=== PATIENT | male | born 1980 | race Caucasian/White ===

== ENCOUNTER 2020-04-29 11:49 | Emergency (ER) | payer SELFPAY ==
[2020-04-29 12:08] VITALS: BP 142/78; PULSE 72; RESP 18; TEMP 37.3; O2SAT 98; BMI 22.1
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
[2020-04-29] MEDS: cephALEXin 500 mg Capsule PO (12:23)
[2020-04-29] MEDS: tetanus-dipt-pertussis 0.5 mL SDV IM (12:23)
== END 2020-04-29 13:19 | disposition home or self-care (01) ==
LOC: ER 13:05
PROVIDERS: Emergency Provider Physician Assistant
DX: S61.411A Laceration without foreign body of right hand, initial encounter (principal); W26.9XXA Contact with unspecified sharp object(s), initial encounter; F17.210 Nicotine dependence, cigarettes, uncomplicated; Z23 Encounter for immunization
CPT/HCPCS: 12002; 12345; 90471; 90715; 99282; 99283; J2001

== ENCOUNTER 2020-05-09 08:23 | Emergency (ER) | payer SELFPAY ==
[2020-05-09 08:26] VITALS: BP 132/86; PULSE 101; RESP 18; TEMP 37; O2SAT 97; BMI 21.9
--- NOTE | 2020-05-09 08:29 | ED_ITS ---
HPI - Wound/Laceration General: Chief Complaint: Recheck/Abnormal Lab/Rx Stated Complaint: RIGHT HAND LAC Time Seen by Provider: 05/09/20 08:26 History of Present Illness: HPI narrative: Patient is a 39-year-old male comes to the ED with right hand laceration. Patient was seen here in the ED for same laceration on 04/29. Sutures were placed to close wound 04/29 and he was instructed to have a medical provider evaluate and remove sutures in 7 to 10 days. Patient says yesterday he removed the sutures himself and laceration had not healed up enough. Patient states he thinks he remove the sutures too early. Associated symptoms: Denies chills, fever(s), nausea or vomiting Review of Systems Const: Denies: fever(s), chills or fatigue Eyes: Denies: change in vision or eye discomfort ENMT: Denies: throat pain, odynophagia, nasal discharge or nasal congestion Card: Denies: chest pain, palpitations, edema, swelling of feet/ankles, d yspnea on exertion or orthopnea Resp: Denies: dyspnea, productive cough or non-productive cough GI: Denies: abdominal pain, nausea, vomiting, diarrhea, constipation or hematochezia : Denies: flank pain, difficulty urinating, dysuria or hematuria Musc: Denies: neck pain, back pain or extremity swelling Skin/Breast: Reports: new lesions (Same laceration on right hand from last ED visit. Patient remove sutures himself too early.); Denies: rash Neuro: Denies: headache(s), numbness in extremities or weakness in extremities [facility] ED PFSH: Social History Smoking and tobacco status: current every day smoker Alcohol intake: former Physical Exam Const: COMMON NORMALS: no acute distress, patient oriented x3, healthy a ppearing and alert GENERAL APPEARANCE: cooperative and comfortable HENMT: COMMON NORMALS: normocephalic HEAD & SCALP: normocephalic MOUTH: Normal oral and palatal mucosa present THROAT: posterior oropharynx normal and uvula midline Neck/C-Spine: COMMON NORMALS: supple GENERAL: Yes normal visual inspection Resp: COMMON NORMALS: normal respiratory effort, No retractions, No use of accessory muscles and clear to auscultation bilaterally AUSCULTATION: clear to auscultation bilaterally Cardio: COMMON NORMALS: regular rate, regular rhythm, S1 normal heart sound present, S2 normal heart sound present, No gallops present (Cardio), No clicks present (Cardio), No murmurs present (Cardio) and Peripheral pulses 2+ throughout RATE: regular rate RHYTHM: regular rhythm HEART SOUNDS: S1 normal heart sound present and S2 normal heart sound present PERIPHERAL PULSES: Peripheral pulses 2+ throughout GI: COMMON NORMALS: Normal to inspection, nondistended, normoactive bowel sounds present, Soft to palpation, non-tender and no masses PALPATION: Yes Soft to palpation : COMMON NORMALS: Yes no CVA tenderness BLADDER/KIDNEY EXAM: Yes no CVA tenderness Back/Pelvis: COMMON NORMALS: no CVA tenderness Extremity: COMMON NORMALS: no pedal edema GENERAL: Yes normal exam except as noted RIGHT UPPER EXTREMITY: Yes hand & digits (No signs of erythema, warmth or purulent drainage around laceration.) Right hand and digits: Yes inspection (Laceration on dorsal aspect of right hand has not fully closed due to sutures being removed too early.), Yes ROM exam (full), Yes neurovascular exam (intact) and Yes tendon exam (Full ROM) Neuro: COMMON NORMALS: patient oriented x3 and moves all extremities SENSORIUM/ORIENTATION: Yes alert Skin: NARRATIVE SKIN EXAM: Laceration on right hand has not fully closed due to sutures being removed too early. GENERAL SKIN EXAM: dry skin Procedures Laceration Laceration 1: Site: hand (dorsal aspect) Side (If applicable): right Size (cm): 2.5 Description: linear Depth: simple, single layer Local Anesthetic: lidocaine 1% and with epi Amount of anesthesia used (mL): 10 Pre-repair: irrigated extensively (With normal saline.) Skin layer closed with: nylon Size (cm): 4-0 Number of sutures: 4 Technique: simple, interrupted Course Vital Signs: Vital signs: Vital Signs Temperature 98.6 F 05/09/20 08:26 Pulse Rate 85 05/09/20 09:52 Respiratory Rate 18 05/09/20 09:52 Blood Pressure 115/72 05/09/20 09:52 Pulse Oximetry 97 05/09/20 09:52 MDM - Wound/Laceration MDM Narrative: Medical decision making narrative: Patient is a 39-year-old male who comes to the ED for laceration/wound recheck. Patient was seen here for a laceration approximately 10 days ago, sutures placed and discharged on antibiotic. Patient says that he did not take the antibiotic because he did not have the money to get the prescription filled and he removed the sutures himself and did not get wound evaluated by a provider. Patient remove the sutures, but part of the wound was not fully healed yet. He then bumped his right hand on a hard surface and it reopened part of laceration. Here in the ED patient's laceration was irrigated and cleaned. Lidocaine with epi was used as a local one 4 sutures were placed. Patient was also given a dose of IM Rocephin and discharged. He was told to come back to the ED or urgent care for reevaluation of wound healing and suture removal in approximately 10 days. He was told to keep wound covered and cleaned daily. Patient understood and agreed with plan. Discharge Plan Discharge Patient Disposition: Home, Self-Care Clinical Impression: Encounter for wound re-check Condition: Stable Prescriptions: No Action No Known Home Medications RF: 0 Discharge Orders: Discharge Order (Routine); Ordered 05/09/20 Ordered By: José Alvarez Discharge Diet: Regular Discharge Activity: Resume usual activity Patient Instructions: Laceration (ED) Activity Restrictions/Additional Instructions: Keep laceration site clean and dry for the next 48 hours. Then after that you can clean and re-bandage daily. Watch for signs of infection such as redness, warmth, increased tenderness and puslike drainage. If you see the signs of infection return to the ED, urgent care or PCP for reevaluation. call your PCP to schedule a follow-up appointment for reevaluation in the next 10 days and to get sutures removed. Continue taking all home meds. Follow discharge plans as discussed. You can return to the ED if symptoms worsen. 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
[2020-05-09 08:45] VITALS: BP 132/86; PULSE 101; RESP 18; O2SAT 96
[2020-05-09 09:52] VITALS: BP 115/72; PULSE 85; RESP 18; O2SAT 97
== END 2020-05-09 09:55 | disposition home or self-care (01) ==
PROVIDERS: Emergency Provider Physician Assistant
DX: Z48.00 Encounter for change or removal of nonsurgical wound dressing (principal); S61.411A Laceration without foreign body of right hand, initial encounter; X58.XXXA Exposure to other specified factors, initial encounter; F17.210 Nicotine dependence, cigarettes, uncomplicated
CPT/HCPCS: 12001; 12345; 96372; 96374; 96375; 99281; 99283; J0696

== ENCOUNTER 2021-03-06 08:18 | Emergency (ER) | payer SELFPAY ==
[2021-03-06 08:30] VITALS: BP 134/88; PULSE 98; RESP 16; TEMP 36.7; O2SAT 98; BMI 22.5
--- NOTE | 2021-03-06 08:30 | W.ED.UPPEXIN ---
HPI - Extremity Injury (Upper) General: Chief Complaint: Back Pain/Injury Stated Complaint: Pain In R. Shoulder/Numbness in R. Hand Time Seen by Provider: 03/06/21 08:30 History of Present Illness: HPI narrative: Patient comes in today for complaints of right shoulder discomfort. Patient also reports some numbness into his right hand. Patient denies any falls or injury. Patient denies any fever or nausea or vomiting. Patient works at a [employer] in which he utilizes his body most of the time. Patient appears well. Patient appears in mild to no pain. Onset (ago): day(s) Other Extremity Injury: Right: shoulder Other injuries: none Handedness: right Severity: mild Relieving factors: rest Exacerbating factors: none Context: other (Probable repetitive injury) Associated symptoms: Reports numbness Treatments prior to arrival: other ([id number] analgesics) Review of Systems General: Reports: 10 or more systems reviewed and unremarkable except in HPI and below Musc: Reports: joint pain PFSH ED PFSH: Social History Smoking and tobacco status: current every day smoker Alcohol intake: former Current gender identity: Male Physical Exam Const: COMMON NORMALS: no acute distress and patient oriented x3 GENERAL APPEARANCE: cooperative HENMT: COMMON NORMALS: normocephalic and Normal external nose present HEAD & SCALP: normal to inspection and normocephalic NOSE: Normal external nose present Eye: GENERAL EYE: appearance normal, both eyes and all related structures Neck/C-Spine: COMMON NORMALS: full ROM Chest: COMMONS NORMALS: normal inspection of the chest Resp: COMMON NORMALS: normal respiratory effort EFFORT & INSPECTION: Yes able to speak in complete sentences Cardio: COMMON NORMALS: regular rate and regular rhythm RATE: regular rate RHYTHM: regular rhythm GI: COMMON NORMALS: non-tender Back/Pelvis: OTHER: Tenderness along palpation of upper thoracic spine on the right side. Extremity: OTHER: Normal range of motion of the shoulder without any joint line tenderness, redness or swelling. Neuro: COMMON NORMALS: patient oriented x3 and moves all extremities Psych: COMMON NORMALS: mental status grossly normal and cooperative Skin: COMMON NORMALS: no rashes or lesions noted GENERAL SKIN EXAM: no rashes or lesions noted Course Vital Signs: Vital signs: Vital Signs Temperature 98.0 F 03/06/21 08:30 Pulse Rate 98 05/10/21 08:30 Respiratory Rate 16 03/06/21 08:30 Blood Pressure 134/88 03/06/21 08:30 Pulse Oximetry 98 03/06/21 08:30 MDM - Extremity Injury (Upper) MDM Narrative: Medical decision making narrative: Patient presents today with complaints of right posterior shoulder pain with some numbness into his right hand. On exam patient has good strength and range of motion of the shoulder. It is noted that patient has muscle tenderness to the upper thoracic paraspinous muscles. No signs of injury is noted. No dislocation is noted. Distal pulses and sensation appears intact. Differential diagnosis includes but not limited to muscle strain, nerve impingement syndrome, facet arthropathy, intervertebral disc disease. Recommended patient do a trial of dexamethasone 10 mg IM x1 and then continue with muscle relaxer. Recommended [id number] analgesics for pain. Continue with activity as tolerated. Patient reported understanding and agreed to plan with need for follow-up. Discharge Plan Discharge Patient Disposition: Home Clinical Impression: Thoracic back pain Qualifiers: Chronicity: unspecified Back pain laterality: right Qualified Code(s): M54.6 - Pain in thoracic spine Condition: Stable Prescriptions: New tizanidine 4 mg tablet 4 mg PO Q8H PRN (Reason: muscle spasticity) Qty: 14 RF: 0 Discharge Orders: Discharge ED (Routine); Ordered 03/06/21 Ordered By: Tito Caicedo Discharge Diet: Usual diet Discharge Activity: Increase activity as tolerated Patient Instructions: Thoracic Pain (ED), Opioid Safety Activity Restrictions/Additional Instructions: Activity as tolerated. Gentle stretching and range of motion exercises. Use muscle relaxer as needed for muscle spasm. Use acetaminophen or ibuprofen for pain. Follow-up with primary care in 3 days for recheck. If pain persists or worsens you may need to have further evaluation and this is important for the follow-up appointment. Most likely have a nerve entrapment which is causing the numbness going down the arm. Sometimes this can be relieved with the dose of steroid by reducing the inflammation along that nerve tract pathway. Return to the emergency department for new concerns. 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
[2021-03-06] MEDS: dexamethasone 10 mg/mL INJ IM (09:08)
== END 2021-03-06 09:12 | disposition home or self-care (01) ==
PROVIDERS: Emergency Provider Nurse Practitioner Family
DX: M54.6 Pain in thoracic spine (principal); F17.210 Nicotine dependence, cigarettes, uncomplicated
CPT/HCPCS: 96372; 99283; J1100

== ENCOUNTER 2022-06-17 16:05 | Emergency (ER) | payer SELFPAY ==
--- NOTE | 2022-06-17 16:15 | XRR_ITS ---
PROCEDURE INFORMATION: Exam: XR Right Shoulder Exam date and time: 06/17/2022 4:22 PM Age: 42 years old Clinical indication: Pain; Shoulder; Right; Additional info: R shoulder pain TECHNIQUE: Imaging protocol: Radiologic exam of the Right shoulder. Views: 2 or more views. COMPARISON: CR Chest 1 [place] [id number] 12/30/2016 10:01 PM FINDINGS: Bones/joints: Normal. Soft tissues: Normal. XR/XR shoulder RT min 2V* [id number] IMPRESSION: No acute findings.
[2022-06-17 16:43] VITALS: BP 108/71; PULSE 90; RESP 16; TEMP 36.8; O2SAT 99; BMI 23.7
--- NOTE | 2022-06-17 17:28 | ED_ITS ---
HPI - Extremity Problem General: Chief complaint: Extremity Injury, Upper Stated complaint: right shoulder pain Time Seen by Provider: 06/17/22 17:02 History of Present Illness: Patient is a 42-year-old male comes to the ED with right shoulder pain. Pain started little over 2 weeks ago. He states that he works in a [employer] and is currently doing a lot of lifting and physical labor. He denies any known trauma or injury to cause shoulder pain. He thinks the physical [id number] of his job likely caused his symptoms. Pain is a constant aching type pain just below his right shoulder blade. He has full range of motion in right shoulder but does endorse some aching type pain with movement. Associated symptoms: Deny chest pain, fever(s) or rash Review of Systems Const: Denies: fever(s), chills or fatigue Eyes: Denies: change in vision or eye discomfort ENMT: Denies: throat pain, odynophagia, nasal discharge or nasal congestion Card: Denies: chest pain, palpitations, edema, swelling of feet/ankles, dyspnea on exertion or orthopnea Resp: Denies: dyspnea, productive cough or non-productive cough GI: Denies: abdominal pain, nausea, vomiting, diarrhea, constipation or hematochezia : Denies: flank pain, difficulty urinating, dysuria or hematuria Musc: Reports: extremity pain (Right shoulder pain); Denies: neck pain, back pain or extremity swelling Skin/Breast: Denies: rash or new lesions Neuro: Denies: headache(s), numbness in extremities or weakness in extremities [facility] PFSH: Medical History No pertinent family history Surgical History No pertinent past surgical history Social History Smoking and tobacco status: current every day smoker Alcohol intake: former Current gender identity: Male Physical Exam Const: COMMON NORMALS: no acute distress, patient oriented x3 and alert GENERAL APPEARANCE: cooperative and comfortable HENMT: COMMON NORMALS: normocephalic HEAD & SCALP: normocephalic MOUTH: Normal oral and palatal mucosa present THROAT: posterior oropharynx normal and uvula midline Neck/C-Spine: COMMON NORMALS: supple GENERAL: Yes normal visual inspection Resp: COMMON NORMALS: normal respiratory effort, No retractions, No use of accessory muscles and clear to auscultation bilaterally AUSCULTATION: clear to auscultation bilaterally Cardio: COMMON NORMALS: regular rate, regular rhythm, S1 normal heart sound present, S2 normal heart sound present, No gallops present (Cardio), No clicks present (Cardio), No murmurs present (Cardio) and Peripheral pulses 2+ throughout RATE: regular rate RHYTHM: regular rhythm HEART SOUNDS: S1 normal heart sound present and S2 normal heart sound present PERIPHERAL PULSES: Peripheral pulses 2+ throughout GI: COMMON NORMALS: Normal to inspection, nondistended, normoactive bowel sounds present, Soft to palpation, non-tender and no masses PALPATION: Yes Soft to palpation : COMMON NORMALS: Yes no CVA tenderness BLADDER/KIDNEY EXAM: Yes no CVA tenderness Back/Pelvis: COMMON NORMALS: no CVA tenderness Extremity: NARRATIVE EXTREMITY EXAM: Right shoulder?no deformity or swelling noted. Full range of motion in shoulder. Neurovascular intact distally. Patient does have some muscular tenderness noted just inferior to right scapular region. Neuro: COMMON NORMALS: patient oriented x3 SENSORIUM/ORIENTATION: Yes alert GAIT: Yes Normal gait present Skin: GENERAL SKIN EXAM: dry skin Course Vital Signs: Vital signs: Vital Signs Temperature 98.3 F 06/17/22 16:43 Pulse Rate 90 06/17/22 16:43 Respiratory Rate 16 06/17/22 16:43 Blood Pressure 108/71 06/17/22 16:43 Pulse Oximetry 99 06/17/22 16:43 Oxygen Delivery Me thod 06/17/22 16:43 MDM - Extremity (Nontraumatic) Medical Decision Making Patient is a 42-year-old male comes to the ED with right shoulder pain. Pain st arted little over 2 weeks ago. 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 He denies any known trauma or injury to cause shoulder pain. He thinks the physical [id number] of his job likely caused his symptoms. Vitals are stable. Exam of right shoulder shows no deformity or swelling noted. Full range of motion in shoulder. Neurovascular intact distally. Patient does have some muscular tenderness noted just inferior to right scapular region. X-ray of right shoulder showed no acute findings. Given patient exam findings he likely has muscle strain causing his symptoms. He was given dose of Toradol and Norflex here in the ED. He was diagnosed with muscle strain of right scapular region and discharged home with a prescription for Celebrex and a muscle relaxer. Told to follow-up with PCP in the next week for reevaluation. He was sent home with a shoulder sling and instructed to use it for the next couple days to help with pain. Return ED precautions given. Patient understood and agreed with plan. Lab Data Radiology Impressions Shoulder X-Ray 06/17/22 16:15 IMPRESSION: No acute findings. Discharge Plan Discharge Patient Disposition: Home Clinical Impression: Muscle strain of right scapular region Qualifiers: Encounter type: initial encounter Qualified Code(s): S46.911A - Strain of unspecified muscle, fascia and tendon at shoulder and upper arm level, right arm, initial encounter Condition: Stable Prescriptions: New Celebrex 100 mg capsule 100 mg PO BID PRN (Reason: pain) Qty: 30 0RF cyclobenzaprine 10 mg tablet 10 mg PO BID PRN (Reason: muscle spasm) Qty: 20 0RF No Action tizanidine 4 mg tablet 4 mg PO Q8H PRN (Reason: muscle spasticity) Qty: 14 0RF Discharge Orders: Discharge ED (Routine); Ordered 06/17/22 Ordered By: José Alvarez Discharge Diet: Regular Discharge Activity: Increase activity as tolerated Patient Instructions: Muscle Strain (ED) Activity Restrictions/Additional Instructions: Follow-up with medical provider as directed in the next 5 to 7 days ree valuation. You can wear the shoulder sling for the next couple days to allow shoulder to rest and heal. Remove arm from shoulder sling multiple times throughout the day and do some range of motion exercises to prevent frozen shoulder. Apply cold pack on sore area of shoulder to help with symptoms as well. Take medications as prescribed. Return to the ER or your medical provider if condition worsens. Please read and understand discharge instructions. Thank you for choosing [facility] for your healthcare needs today. Please realize this is an emergency room and that we are providing you with a medical screening exam and this may not be complete and all inclusive of all the testing and or work up that you may need to determine your ailment or severity of your illness. It is very important that you follow up as instructed or that you return to the Emergency Department should you have concerns or if your condition changes or worsens in any way. Coding Level of Care Code ED [employer] Business Segment Leader for Juan Fair Exam Comprehensive
[2022-06-17] MEDS: ketorolac 60 mg/2 mL INJ IM (18:14)
[2022-06-17] MEDS: orphenadrine 30 mg/mL Inj 2 mL 60 MG IM (18:14)
== END 2022-06-17 18:18 | disposition home or self-care (01) ==
PROVIDERS: Emergency Provider Physician Assistant
DX: S46.911A Strain of unspecified muscle, fascia and tendon at shoulder and upper arm level, right arm, initial encounter (principal); F17.210 Nicotine dependence, cigarettes, uncomplicated; X50.0XXA Overexertion from strenuous movement or load, initial encounter
CPT/HCPCS: 73030; 96372; 99284; J1885; J2360

== ENCOUNTER 2022-07-30 08:09 | Emergency (ER) | payer SELFPAY ==
[2022-07-30 08:13] VITALS: BP 121/83; PULSE 101; RESP 16; TEMP 36.8; O2SAT 99; BMI 23.1
[2022-07-30] MEDS: dexamethasone 10 mg/mL INJ IM (08:29)
--- NOTE | 2022-07-30 08:46 | W.ED.EXTPRO ---
HPI - Extremity Problem General: Chief complaint: Extremity Injury, Lower Stated complaint: right leg pain Time Seen by Provider: 07/30/22 08:12 Source: patient Mode of arrival: ambulatory History of Present Illness: 42-year-old male presents emergency room with complaint of weakness in his right leg with pain and numbness that began yesterday radiates down through his buttock posterior lateral thigh and into his foot. He has developed a right foot drop and has noticed he has had to alter his gait to prevent from his toes dragging when he walks. No recent trauma. No accidents no falls. 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 He has not had any fecal incontinence or urine retention. No previous advanced imaging to the back no previous back surgeries. MD Complaint: extremity pain Onset (ago): day(s) Pain Consistency: constant Location: right and lower extremity Radiation: none Relieving factors: nothing Exacerbating factors: nothing Associated symptoms: Deny chest pain, fever(s) or rash Review of Systems Const: Denies: fever(s), chills, body aches, change in appetite, fatigue or malaise ENMT: Denies: throat pain, ear or mastoid pain, nasal discharge or nasal congestion Card: Denies: chest pain, edema, dyspnea on exertion or orthopnea Resp: Denies: dyspnea, productive cough or non-productive cough GI: Denies: abdominal pain, nausea, vomiting, hematemesis, coffee ground emesis, diarrhea, constipation, bloating, hematochezia or melena : Denies: flank pain, dysuria, urinary frequency or urinary urgency Musc: Reports: back pain and extremity pain Skin/Breast: Denies: rash or pruritus Neuro: Reports: other (Right foot drop) [facility] PFSH: Medical History No pertinent family history Surgical History No pertinent past surgical history Social History Smoking and tobacco status: current every day smoker Alcohol intake: former Current gender identity: Male Physical Exam Const: COMMON NORMALS: no acute distress GENERAL APPEARANCE: cooperative and comfortable ORIENTATION/CONSCIOUSNESS: Yes awake, Yes oriented to person, Yes oriented to place and Yes oriented to time HENMT: COMMON NORMALS: normocephalic, atraumatic and hearing grossly normal bilaterally HEAD & SCALP: normocephalic and atraumatic Lymph: LYMPHATIC: no lymphadenopathy noted and no lymphedema noted Resp: COMMON NORMALS: normal respiratory effort, No retractions, No use of accessory muscles and clear to auscultation bilaterally AUSCULTATION: clear to auscultation bilaterally Cardio: COMMON NORMALS: regular rate, regular rhythm and No murmurs present (Cardio) RATE: regular rate RHYTHM: regular rhythm GI: COMMON NORMALS: Soft to palpation and No hepatosplenomegaly present AUSCULTATION: Yes normoactive bowel sounds PALPATION: Yes Soft to palpation, No Tenderness to palpation present (GI), No Guarding due to palpation present (GI) and Yes No hepatosplenomegaly present Extremity: COMMON NORMALS: normal to inspection, capillary refill normal, no clubbing, cyanosis or edema, no calf tenderness and no pedal edema Neuro: SENSORIUM/ORIENTATION: Yes oriented to person, Yes oriented to place and Yes oriented to time Skin: COMMON NORMALS: no rashes or lesions noted GENERAL SKIN EXAM: no rashes or lesions noted Course Vital Signs: Vital signs: Vital Signs Temperature 98.3 F 07/30/22 08:13 Pulse Rate 77 07/30/22 09:04 Respiratory Rate 16 07/30/22 09:04 Blood Pressure 121/83 07/30/22 08:13 Pulse Oximetry 100 07/30/22 09:04 Oxygen Delivery Me thod 07/30/22 08:13 MDM - Extremity (Nontraumatic) Medical Decision Making Patient has a new foot drop with L4-5 nerve root compression based on his history and exam. He still has well-preserved and reflexes of the patellar tendon. His symptoms do originate proximal to the knees I do not think it is a common peroneal nerve impingement at that level of the knee. We will get him set up to see orthopedic spine surgery for further evaluation and likely advanced imaging. In the meantime we will start him on prednisone. Medical Records I reviewed the patient's medical records. Lab Data I reviewed the patient's lab results. Discharge Plan Discharge Patient Disposition: Home Clinical Impression: Lumbar nerve root compression, Foot drop, right Condition: Stable Prescriptions: New prednisone 20 mg tablet 20 mg PO TID Qty: 15 0RF Rx Instructions: 1 p.o. 3 times daily x3 days, 1 p.o. twice daily x2 days, 1 p.o. daily x2 days Lyrica 75 mg capsule 75 mg PO BID Qty: 60 0RF No Action tizanidine 4 mg tablet 4 mg PO Q8H PRN (Reason: muscle spasticity) Qty: 14 0RF Celebrex 100 mg capsule 100 mg PO BID PRN (Reason: pain) Qty: 30 0RF cyclobenzaprine 10 mg tablet 10 mg PO BID PRN (Reason: muscle spasm) Qty: 20 0RF Discharge Orders: Discharge ED (Routine); Ordered 07/30/22 Ordered By: Saleem Sharma Patient Instructions: Opioid Safety, Pain Management Activity Restrictions/Additional Instructions: Case management is making arrangements for you to be seen by orthopedic spine surgery tomorrow. If you develop inability to empty the bladder or have fecal incontinence return to the emergency room immediately. Coding Level of Care Code ED Senior Accounts Payable Clerk for Juan Fair Exam Comprehensive
--- NOTE | 2022-07-30 08:57 | DCPLANNER ---
Addendum entered by Fallon Schrader 10/08/22 15:10: Patient had follow up appointment with ortho - patient did attend appointment. Original Note: assistant import manager was asked to schedule a follow up appointment for patient with ortho. assistant import manager called the ortho clinic, gave clinic patients information. A follow up appointment was scheduled for Sunday, July 31, 2022 at 10:45 with Virgil Mandel. assistant import manager informed ER physician of the scheduled appointment. assistant import manager put the appointment information on patients discharge paperwork.
[2022-07-30 09:04] VITALS: PULSE 77; RESP 16; O2SAT 100
== END 2022-07-30 09:05 | disposition home or self-care (01) ==
PROVIDERS: Emergency Provider Family Medicine
DX: G54.8 Other nerve root and plexus disorders (principal); M21.371 Foot drop, right foot
CPT/HCPCS: 96372; 99284; J1100

== ENCOUNTER → 2022-07-31 10:38 | Outpatient (BNVA) | payer SELFPAY | PROVIDERS: Referring Provider Family Medicine; Visit Provider Physician Assistant | DX: M54.16 Radiculopathy, lumbar region (principal); M21.371 Foot drop, right foot; M51.26 Other intervertebral disc displacement, lumbar region; M51.36 Other intervertebral disc degeneration, lumbar region | CPT/HCPCS: 72110 ==

== ENCOUNTER 2022-08-01 11:49 | Outpatient (CLI) | payer SELFPAY ==
--- NOTE | 2022-08-01 12:30 | MR_ITS ---
WS: [id number] MRI LUMBAR SPINE NONCONTRAST HISTORY: RIGHT FOOT DROP COMPARISON: Radiographs 07/31/2022 TECHNIQUE: Sagittal and axial multisequence imaging is submitted. Central C6-7 disc protrusion without cord contact. Mild straightening of the normal lumbar lordosis. Small Schmorl's nodes defects in the superior endpl ates of T12, L4 and L5. No acute fractures. Mild disc space narrowing and desiccation. Conus terminates normally at L1-2 disc level. L1-L2: Normal. L2-L3: Very minimal ligamentum flavum hypertrophy. No stenosis. L3-L4: Mild annular disc bulge and mild ligamentum flavum hypertrophy. There is narrowing of the suba rticular recesses. Very mild contact and encroachment upon the traversing L4 nerve roots. L4-L5: Mild disc bulge. Mild ligamentum flavum and facet arthritis. Mild bilateral foraminal stenosis , LEFT greater than RIGHT. No central stenosis or disc protrusion. L5-S1: Mild disc bulging and ligamentum flavum hypertrophy. There is a small disc protrusion extendin g into the LEFT foramen with near complete effacement of LEFT foraminal fat. Similar findings but ate lectasis or extent on the RIGHT. Paravertebral soft tissues are negative. MR/MR lumbar spine wo con* [id number] IMPRESSION: 1. Bilateral mild subarticular recess stenosis at L3-4 with mild disc contact on the L4 nerve roots. 2. Moderate LEFT foraminal stenosis and mild on the RIGHT at L5-S1. Small LEFT foraminal disc protrusion is contributing to the stenosis. 3. Mild bilateral foraminal stenosis at L4-5, slightly greater on the LEFT.
== END 2022-08-01 11:50 | disposition home or self-care (01) ==
PROVIDERS: Visit Provider Physician Assistant
DX: M21.371 Foot drop, right foot (principal); M54.16 Radiculopathy, lumbar region; M48.061 Spinal stenosis, lumbar region without neurogenic claudication
CPT/HCPCS: 72148

== ENCOUNTER 2023-05-07 07:26 | Emergency (ER) | payer SELFPAY ==
[2023-05-07 07:30] VITALS: BP 134/78; PULSE 105; RESP 15; TEMP 37; O2SAT 97; BMI 22.5
--- NOTE | 2023-05-07 07:41 | W.ED.NAVMDI ---
HPI - Nausea/Vomiting/Diarrhea General: Chief complaint: Nausea/Vomiting/Diarrhea Stated complaint: N/V Weakness Time Seen by Provider: 05/07/23 07:27 Source: patient Mode of arrival: ambulatory Limitations: no limitations History of Present Illness: Patient is a nice 42-year-old male who presents to ED today with complaint of nausea, vomiting, diarrhea over the past 48 hours or so. He states he will vomit anytime he tries to eat or drink anything. He states he will have approximately 3 episodes of nonbloody diarrhea daily. He does have some diffuse mild intermittent abdominal pain. Denies sick contacts or poor food exposures. No fevers. Reports occasional marijuana use (1-2 times weekly). He reports feeling weak secondary to lack of intake. Denies alcohol/NSAID use. MD elicited complaint: nausea, vomiting, diarrhea and abdominal pain Onset (ago): day(s) Description of diarrhea: watery Associated nausea: Yes Associated abdominal pain: Yes Location of pain: Diffuse Pain consistency: intermittent Severity: mild Quality: cramping Exacerbating factors: eating Relieving factors: none Associated symtoms: Reports nausea; Denies chest pain, dizziness, dysuria, fatigue, headache(s) or malaise Review of Systems Const: Denies: fever(s), chills, body aches, fatigue or malaise Card: Denies: chest pain Resp: Denies: dyspnea GI: Reports: abdominal pain, nausea, vomiting, diarrhea and GI cramping; Denies: hematemesis, heartburn, hematochezia or melena : Denies: flank pain, difficulty urinating, dysuria, urinary frequency, urinary urgency or urinary hesitancy Musc: Denies: neck pain, back pain, extremity pain or joint pain Skin/Breast: Denies: rash Neuro: Denies: headache(s), numbness in extremities, weakness in extremities, sensory changes, difficulty walking or dizziness PFSH ED PFSH: Medical History No pertinent family history Surgical History No pertinent past surgical history Social History Smoking and tobacco status: current every day smoker Alcohol intake: former Substance/Drug Use: never Current gender identity: Male Physical Exam Const: COMMON NORMALS: no acute distress, average body habitus, patient oriented x3, no limitations, healthy appearing, alert and well nourished ORIENTATION/CONSCIOUSNESS: Yes awake, Yes oriented to person, Yes oriented to place and Yes oriented to time Eye: COMMON NORMALS: no scleral icterus Neck/C-Spine: COMMON NORMALS: no lymphadenopathy Resp: COMMON NORMALS: normal respiratory effort and clear to auscultation bilaterally AUSCULTATION: clear to auscultation bilaterally Cardio: COMMON NORMALS: regular rate and regular rhythm RATE: regular rate RHYTHM: regular rhythm GI: COMMON NORMALS: Normal to inspection, nondistended, normoactive bowel sounds present, Soft to palpation, No hepatosplenomegaly present and no masses INSPECTION: Yes normal to inspection AUSCULTATION: Yes normoactive bowel sounds PALPATION: Yes Soft to palpation, Yes Tenderness to palpation present (GI) (diffusely; non-surgical exam), No Guarding due to palpation present (GI), No Rigid due to palpation and Yes No hepatosplenomegaly present : COMMON NORMALS: Yes no CVA tenderness BLADDER/KIDNEY EXAM: Yes no CVA tenderness Back/Pelvis: COMMON NORMALS: no CVA tenderness, thoracic and lumbar spine normal to inspection and no thoracic nor lumbar tenderness Extremity: COMMON NORMALS: normal to inspection, capillary refill normal, no clubbing, cyanosis or edema and no pedal edema GENERAL: Yes normal exam except as noted Neuro: CARLOS COMA SCALE: document GCS findings [employer] coma scale eye opening: Spontaneous [employer] coma scale verbal response: Orientated Carlos coma scale motor response: Obey commands [employer] coma scale total score: 15 COMMON NORMALS: patient oriented x3 and gait normal SENSORIUM/ORIENTATION: Yes alert, Yes oriented to person, Yes oriented to place and Yes oriented to time Skin: COMMON NORMALS: no rashes or lesions noted GENERAL SKIN EXAM: no rashes or lesions noted Course Vital Signs: Vital signs: Vital Signs Temperature 98.6 F 05/07/23 07:30 Pulse Rate 105 H 05/07/23 07:30 Respiratory Rate 15 05/07/23 07:30 Blood Pressure 134/78 05/07/23 07:30 Pulse Oximetry 97 05/07/23 07:30 Oxygen Delivery Me thod Room Air 05/07/23 07:30 MDM - Nausea/Vomiting/Diarrhea Medical Decision Making Patient has not had any episodes of vomiting or diarrhea while here. His vital signs are normal. He initially arrived slightly tachycardic but this has resolved after fluids. He states he feels better after IV fluids/Zofran. He was able to drink some Sprite here. Abdomen was nonsurgical. He will be sent home with a prescription for Zofran. Return to ED precautions given. Lab Data 05/07/23 08:10 05/07/23 08:10 Laboratory Results WBC 9.8 10^3/uL (4.0-10.0) 05/07/23 08:10 RBC 4.92 10^6/uL (4.1-5.3) 05/07/23 08:10 Hgb 15.5 g/dL (11.7-16.6) 05/07/23 08:10 Hct 45.7 % (42.0-52.0) 05/07/23 08:10 MCV 92.9 fl (80-94) 05/07/23 08:10 MCH 31.5 pg (28.0-34.0) 05/07/23 08:10 MCHC 33.9 g/dL (30.0-36.0) 05/07/23 08:10 RDW 11.4 % (12.1-15.1) L 05/07/23 08:10 Plt Count 397 10^3/cmm (130-400) 05/07/23 08:10 MPV 9.3 fL (7.4-10.4) 05/07/23 08:10 Neut % (Auto) 74.3 % 05/07/23 08:10 Lymph % (Auto) 17.6 % 05/07/23 08:10 Pine % (Auto) 7.2 % 05/07/23 08:10 Eos % (Auto) 0.4 % 05/07/23 08:10 Baso % (Auto) 0.2 % 05/07/23 08:10 Neut # (Auto) 7.24 10^3/uL (1.8-7.7) 05/07/23 08:10 Lymph # (Auto) 1.7 10^3/uL (0.8-4.8) 05/07/23 08:10 Pine # (Auto) 0.7 10^3/uL (0.2-0.9) 05/07/23 08:10 Eos # (Auto) 0.0 10^3/uL (0.0-0.8) 05/07/23 08:10 Baso # (Auto) 0.0 10^3/uL (0.0-0.1) 05/07/23 08:10 Nucleated RBC % (auto) 0 % 05/07/23 08:10 Nucleated RBCs # 0.0 /100WBC 05/07/23 08:10 Sodium 140 mmol/L (136-145) 05/07/23 08:10 Potassium 3.6 mmol/L (3.5-5.1) 05/07/23 08:10 Chloride 101 mmol/L (98-107) 05/07/23 08:10 Carbon Dioxide 28 mmol/L (22-29) 05/07/23 08:10 Anion Gap 14.6 (5-19) 05/07/23 08:10 BUN 15 mg/dL (6-20) 05/07/23 08:10 Creatinine 0.7 mg/dL (0.7-1.2) 05/07/23 08:10 GFR Calculation 123.7 mL/min (90-130) 05/07/23 08:10 Glucose 91 mg/dL (65-115) 05/07/23 08:10 Calculated Osmolality 290 mOsm/kg (285-295) 05/07/23 08:10 Calcium 9.2 mg/dL (8.5-10.5) 05/07/23 08:10 Total Bilirubin 0.8 mg/dL (0.15-1.2) 05/07/23 08:10 AST 27 U/L (0-40) 05/07/23 08:10 ALT 28 U/L (0-41) 05/07/23 08:10 Alkaline Phosphatase 82 U/L (40-130) 05/07/23 08:10 Total Protein 7.5 g/dL (6.6-8.7) 05/07/23 08:10 Albumin 4.6 g/dL (3.5-5.2) 05/07/23 08:10 Globulin 2.9 g/dL (1.3-4.6) 05/07/23 08:10 Lipase 24 U/L (13-60) 05/07/23 08:10 Discharge Plan Discharge Patient Disposition: Home Clinical Impression: Gastroenteritis Condition: Stable Prescriptions: New ondansetron 4 mg tablet,disintegrating 4 mg PO Q8H PRN (Reason: nausea and vomiting) Qty: 14 0RF No Action tizanidine 4 mg tablet 4 mg PO Q8H PRN (Reason: muscle spasticity) Qty: 14 0RF Celebrex 100 mg capsule 100 mg PO BID PRN (Reason: pain) Qty: 30 0RF cyclobenzaprine 10 mg tablet 10 mg PO BID PRN (Reason: muscle spasm) Qty: 20 0RF prednisone 20 mg tablet 20 mg PO TID Qty: 15 0RF Rx Instructions: 1 p.o. 3 times daily x3 days, 1 p.o. twice daily x2 days, 1 p.o. daily x2 days Lyrica 75 mg capsule 75 mg PO BID Qty: 60 0RF Discharge Orders: Discharge ED (Routine); Ordered 05/07/23 Ordered By: Deirdre Merrill Patient Instructions: Gastroenteritis (DC), Acute Nausea and Vomiting (DC) Coding Level of Care Code ED Radiation Oncology Therapist for Juan Fair
[2023-05-07 08:20] LABS: Basophils % 0.2 %; Eosinophils % 0.4 %; Hematocrit 45.7 % (42.0-52.0); Hemoglobin 15.5 g/dL (11.7-16.6); Lymphocytes # 1.7 10^3/uL (0.8-4.8); Lymphocytes % 17.6 %; Mean Corpuscular HGB Conc 33.9 g/dL (30.0-36.0); Mean Corpuscular Hemoglobin 31.5 pg (28.0-34.0); Mean Corpuscular Volume 92.9 fl (80-94); Mean Platelet Volume 9.3 fL (7.4-10.4); Monocytes # 0.7 10^3/uL (0.2-0.9); Monocytes % 7.2 %; Neutrophils # 7.24 10^3/uL (1.8-7.7); Neutrophils % 74.3 %; Nucleated Red Blood Cells % 0 %; Platelet Count 397 10^3/cmm (130-400); Red Blood Count 4.92 10^6/uL (4.1-5.3); Red Cell Distribution Width 11.4 % (12.1-15.1); White Blood Count 9.8 10^3/uL (4.0-10.0)
[2023-05-07 08:34] LABS: Alanine Aminotransferase 28 U/L (0-41); Albumin Level 4.6 g/dL (3.5-5.2); Alkaline Phosphatase 82 U/L (40-130); Anion Gap 14.6 (5-19); Aspartate Amino Transferase 27 U/L (0-40); Blood Urea Nitrogen 15 mg/dL (6-20); Calcium 9.2 mg/dL (8.5-10.5); Carbon Dioxide 28 mmol/L (22-29); Chloride 101 mmol/L (98-107); Globulin 2.9 g/dL (1.3-4.6); Glomerular Filtration Rate 123.7 mL/min (90-130); Glucose 91 mg/dL (65-115); Lipase 24 U/L (13-60); Osmolality Calculated 290 mOsm/kg (285-295); Potassium 3.6 mmol/L (3.5-5.1); Sodium 140 mmol/L (136-145); Total Bilirubin 0.8 mg/dL (0.15-1.2); Total Protein 7.5 g/dL (6.6-8.7)
[2023-05-07] MEDS: sodium chloride 0.9% 1,000 ML 999 ML IV (08:43)
[2023-05-07] MEDS: ondansetron 2 mg/ML SDV 2 mL 4 MG IVP (08:44)
[2023-05-07 09:00] VITALS: BP 120/72; PULSE 80; RESP 18; O2SAT 92
== END 2023-05-07 09:58 | disposition home or self-care (01) ==
PROVIDERS: Emergency Provider Physician Assistant
DX: K52.9 Noninfective gastroenteritis and colitis, unspecified (principal); F17.200 Nicotine dependence, unspecified, uncomplicated
CPT/HCPCS: 80053; 83690; 85025; 96374; 99284; J2405; J7030

== ENCOUNTER 2024-08-26 07:52 | Emergency (ER) | payer OTHER, SELFPAY ==
--- NOTE | 2024-08-26 08:11 | XRR_ITS ---
PROCEDURE INFORMATION: Exam: XR Right Foot Exam date and time: 08/26/2024 8:55 AM Age: 44 years old Clinical indication: Injury or trauma; Other: Twisted ankle; Sprain or strain; Foot; Right; Additional info: Pain TECHNIQUE: Imaging protocol: Radiologic exam of the right foot. Views: 3 or more views. COMPARISON: No relevant prior studies available. FINDINGS: Bones/joints: Normal. Soft tissues: Mild soft tissue swelling XR/XR foot RT min 3V* [id number] IMPRESSION: No evidence of fracture or dislocation. Mild soft tissue swelling
[2024-08-26 08:16] VITALS: BP 118/75; PULSE 80; RESP 18; TEMP 36.8; O2SAT 97
--- NOTE | 2024-08-26 08:53 | W.ED.EXTPRO ---
HPI - Extremity Problem General: Chief complaint: Extremity Injury, Lower Stated complaint: rt foot inj Time Seen by Provider: 08/26/24 08:10 History of Present Illness: 44-year-old male presents emergency room complaint of right ankle pain. He jumped off a porch and had an inversion injury to his right ankle felt a snapping sensation. Immediately after patient was able to ambulate and will bear weight on the foot this morning is quite a bit more swelling and pain difficulty to ambulate. He previously has had a fracture in that foot in the past did not require surgery. He denies any other injuries when he fell. Related Data Previous Rx's Medication Instructions Recorded diclofenac sodium 75 mg 75 mg PO Q12H PRN pain #20 tabs 08/26/24 tablet,delayed release Allergies Allergy/AdvReac Type Severity Reaction Status Date / Time No Known Allergies Allergy Verified 11/16/23 12:07 Review of Systems Musc: Reports: joint pain and joint swelling [facility] ED PFSH: Medical History Herniated nucleus pulposus, L4-5 right Psychiatric care No pertinent family history Surgical History No pertinent past surgical history Social History Smoking and tobacco/nicotine status: current every day tobacco/nicotine user Alcohol intake: former Substance/Drug Use: never Current gender identity: Male Physical Exam Extremity: OTHER: Examination of the right ankle dorsalis pedis posterior tibialis pulse palpable sensation normal neurovascularly intact large amount of swelling over the medial malleolus early ecchymosis noted. Initially did not test range of motion at the ankle because of pain x-ray pending Course Vital Signs: Vital signs: Vital Signs Temperature 98.3 F 08/26/24 08:16 Pulse Rate 67 08/26/24 10:12 Respiratory Rate 16 08/26/24 10:12 Blood Pressure 122/71 08/26/24 10:12 Pulse Oximetry 99 08/26/24 10:12 Oxygen Delivery Me thod Room Air 08/26/24 08:16 MDM - Extremity (Nontraumatic) Medical Decision Making No acute fracture on x-ray of the foot or ankle. Patient does have significant amount of swelling and discomfort. Patient in a posterior splint and on crutches. I did not stress the joint as the amount of swelling he had would cause discomfort without contributing significantly to exam. Will have case management make arrangements for him to follow-up with podiatry. Patient is left nonweightbearing. Medical Records I reviewed the patient's medical records. Lab Data I reviewed the patient's lab results. Radiology Impressions Foot X-Ray 08/26/24 08:11 IMPRESSION: No evidence of fracture or dislocation. Mild soft tissue swelling Ankle X-Ray 08/26/24 08:56 IMPRESSION: Soft tissue swelling. No evidence of fracture All radiology interpretation(s) finalized by discharge Discharge Plan Discharge Patient Disposition: Home Clinical Impression: Ankle sprain and strain Condition: Stable Prescriptions: New diclofenac sodium 75 mg tablet,delayed release (DR/EC) 75 mg PO Q12H PRN (Reason: pain) Qty: 20 0RF Discharge Orders: Discharge ED (Routine); Ordered 08/26/24 Ordered By: Saleem Sharma Patient Instructions: Opioid Safety, Pain Management Activity Restrictions/Additional Instructions: Thank you for choosing [facility] for your healthcare needs today. It is very important that you follow up as instructed or that you return to the Emergency Department should you have concerns or if your condition changes or worsens in any way. You were seen today after an ankle injury. X-ray of your foot and ankle did not show any acute fractures. Suspect you have a rather severe sprain we will place you in a posterior splint recommend that you do not bear weight on the ankle gave you diclofenac to use as needed. Elevate the ankle and apply ice when you are able to decrease swelling and discomfort. field marketing manager will make arrangements for you to follow-up with podiatry. Coding Level of Care Code ED Capital Project Engineer for Juan Fair
--- NOTE | 2024-08-26 08:56 | XRR_ITS ---
PROCEDURE INFORMATION: Exam: XR Right Ankle Exam date and time: 08/26/2024 8:57 AM Age: 44 years old Clinical indication: Injury or trauma; Other: Twisted ankle; Sprain or strain; Right TECHNIQUE: Imaging protocol: Radiologic exam of the right ankle. Views: 3 or more views. COMPARISON: CR XR foot RT min 3V* [id number] 08/26/2024 8:55 AM FINDINGS: Bones/joints: No evidence of fracture or dislocation Soft tissues: Soft tissue swelling XR/XR ankle RT min 3V* [id number] IMPRESSION: Soft tissue swelling. No evidence of fracture
[2024-08-26 10:12] VITALS: BP 122/71; PULSE 67; RESP 16; O2SAT 99
--- NOTE | 2024-08-28 01:43 | DCPLANNER ---
Message sent to podiatry;presents emergency room complaint of right ankle pain. He jumped off a porch and had an inversion injury to his right ankle felt a snapping sensation.
== END 2024-08-26 10:14 | disposition home or self-care (01) ==
PROVIDERS: Emergency Provider Family Medicine
DX: S93.401A Sprain of unspecified ligament of right ankle, initial encounter (principal); W13.8XXA Fall from, out of or through other building or structure, initial encounter; Z72.0 Tobacco use
CPT/HCPCS: 29505; 73610; 73630; 99283; E0114

== ENCOUNTER 2024-11-04 11:25 | Emergency (ER) | payer SELFPAY ==
[2024-11-04 11:25] VITALS: RESP 16; BMI 23.1
[2024-11-04 11:38] VITALS: BP 146/126; PULSE 72; RESP 17; TEMP 36.6; O2SAT 99
--- NOTE | 2024-11-04 11:43 | W.ED.PSYCHS ---
HPI - Psych General: Chief Complaint: Psychiatric Symptoms Stated Complaint: SI Time Seen by Provider: 11/04/24 11:26 History of Present Illness: 44-year-old male presents with suicidal ideations. Patient is under a lot of stress and dealing with some depression. He reports in the last 6 months he lost 2 of his kids that were killed in 2 separate incidents 1 4 months ago on 6 months ago. Patient reports he has been having difficulty with this and has been having thoughts for at least the last week or 2 is getting increased. He does admit to taking 6 shots this morning but this was to try to help deal with the depression and suicidal thoughts. Patient reports that he has a Glock and was thinking of shooting himself in the head. Associated symptoms: Reports depression and suicidal ideation Related Data Home Medications Medication Instructions Recorded Confirmed No Known Home Medications 11/04/24 11/04/24 Allergies Allergy/AdvReac Type Severity Reaction Status Date / Time No Known Allergies Allergy Verified 11/16/23 12:07 Review of Systems Const: Denies: fever(s) or chills Card: Denies: chest pain or palpitations Resp: Denies: dyspnea, productive cough or non-productive cough GI: Denies: vomiting or diarrhea : Denies: flank pain or difficulty urinating Skin/Breast: Denies: rash Neuro: Denies: headache(s) Psych: Reports: depression and suicidal ideation [facility] ED PFSH: Medical History Herniated nucleus pulposus, L4-5 right Psychiatric care No pertinent family history Surgical History No pertinent past surgical history Social History Smoking and tobacco/nicotine status: current every day tobacco/nicotine user Alcohol intake: former Substance/Drug Use: never Current gender identity: Male Physical Exam Const: COMMON NORMALS: average body habitus, patient oriented x3, no limitations and alert Resp: COMMON NORMALS: normal respiratory effort, No retractions and No use of accessory muscles Cardio: COMMON NORMALS: regular rate and regular rhythm RATE: regular rate RHYTHM: regular rhythm GI: COMMON NORMALS: Soft to palpation PALPATION: Yes Soft to palpation and Yes Tenderness to palpation present (GI) (Mild epigastric) Neuro: COMMON NORMALS: patient oriented x3, CN's II-XII intact bilaterally, moves all extremities and no focal motor deficits SENSORIUM/ORIENTATION: Yes alert Psych: COMMON NORMALS: Normal thought process present and speech normal APPEARANCE: Yes grossly normal ATTITUDE: Yes calm SPEECH: Yes normal speech MOOD & AFFECT: Yes depressed mood THOUGHT PROCESS: Normal thought process present THOUGHT CONTENT: Yes Suicidality present ATTENTION/CONCENTRATION: Yes attention grossly intact and Yes concentration grossly intact INSIGHT: Fair insight present (Psych) Skin: COMMON NORMALS: no rashes or lesions noted GENERAL SKIN EXAM: no rashes or lesions noted Course Vital Signs: Vital signs: Vital Signs Temperature 97.8 F 11/04/24 11:38 Pulse Rate 72 11/04/24 11:38 Respiratory Rate 17 11/04/24 11:38 Blood Pressure 146/126 11/04/24 11:38 Pulse Oximetry 99 11/04/24 11:38 Oxygen Delivery Me thod Room Air 11/04/24 11:38 MDM - Psych Medical Decision Making Patient was medically cleared for psychiatric treatment and transfer. Patient was accepted to [facility] by their physician. He will be transferred via EMS in stable condition. Lab Data 11/04/24 11:44 11/04/24 11:44 Laboratory Results WBC 5.44 10^3/uL (3.29-11.43) 11/04/24 11:44 RBC 4.90 10^6/uL (3.85-5.65) 11/04/24 11:44 Hgb 16.20 g/dL (11.27-16.99) 11/04/24 11:44 Hct 47.9 % (37-53) 11/04/24 11:44 MCV 97.8 fl (82-101) 11/04/24 11:44 MCH 33.1 pg (27-33) H 11/04/24 11:44 MCHC 33.8 g/dL (30-55) 11/04/24 11:44 RDW 11.7 % (12.1-15.1) L 11/04/24 11:44 Plt Count 457 10^3/cmm (157-399) H 11/04/24 11:44 MPV 8.5 fL (7.4-10.4) 11/04/24 11:44 Neut % (Auto) 44.3 % 11/04/24 11:44 Lymph % (Auto) 43.6 % 11/04/24 11:44 Divide % (Auto) 10.5 % 11/04/24 11:44 Eos % (Auto) 0.6 % 11/04/24 11:44 Baso % (Auto) 0.6 % 11/04/24 11:44 Neut # (Auto) 2.42 10^3/uL (1.8-7.7) 11/04/24 11:44 Lymph # (Auto) 2.4 10^3/uL (0.8-4.8) 11/04/24 11:44 Divide # (Auto) 0.6 10^3/uL (0.2-0.9) 11/04/24 11:44 Eos # (Auto) 0.0 10^3/uL (0.0-0.8) 11/04/24 11:44 Baso # (Auto) 0.0 10^3/uL (0.0-0.1) 11/04/24 11:44 Nucleated RBC % (auto) 0 % 11/04/24 11:44 Nucleated RBCs # 0.0 /100WBC 11/04/24 11:44 Sodium 142 mmol/L (136-145) 11/04/24 11:44 Potassium 3.3 mmol/L (3.5-5.1) L 11/04/24 11:44 Chloride 99 mmol/L (98-107) 11/04/24 11:44 Carbon Dioxide 28 mmol/L (22-29) 11/04/24 11:44 Anion Gap 18.3 (5-19) 11/04/24 11:44 BUN 8 mg/dL (6-20) 11/04/24 11:44 Creatinine 0.6 mg/dL (0.7-1.2) L 11/04/24 11:44 GFR Calculation 146.4 mL/min (90-130) H 11/04/24 11:44 Glucose 68 mg/dL (65-115) 11/04/24 11:44 Calculated Osmolality 291 mOsm/kg (285-295) 11/04/24 11:44 Calcium 8.7 mg/dL (8.5-10.5) 11/04/24 11:44 Total Bilirubin 0.5 mg/dL (0.15-1.2) 11/04/24 11:44 AST 32 U/L (0-40) 11/04/24 11:44 ALT 18 U/L (0-41) 11/04/24 11:44 Alkaline Phosphatase 93 U/L (40-130) 11/04/24 11:44 Total Protein 7.6 g/dL (6.6-8.7) 11/04/24 11:44 Albumin 4.4 g/dL (3.5-5.2) 11/04/24 11:44 Globulin 3.2 g/dL (1.3-4.6) 11/04/24 11:44 Urine Color Yellow (Yellow) 11/04/24 11:40 Urine Appearance Clear (CLEAR) 11/04/24 11:40 Urine pH 6.5 (5-7) 11/04/24 11:40 Ur Specific [place] 1.004 (1.005-1.030) L 11/04/24 11:40 Urine Protein Negative (Negative) 11/04/24 11:40 Urine Glucose (UA) Negative (Normal) 11/04/24 11:40 Urine Ketones Negative (Negative) 11/04/24 11:40 Urine Blood Negative (Negative) 11/04/24 11:40 Urine Nitrate Negative (Negative) 11/04/24 11:40 Urine Bilirubin Negative (Negative) 11/04/24 11:40 Urine Urobilinogen 0.2 mg/dL (Negative) 11/04/24 11:40 Ur Leukocyte Esterase Negative (Negative) 11/04/24 11:40 Urine RBC 0-2 /hpf (0-2) 11/04/24 11:40 Urine WBC 0-5 /hpf (0-5) 11/04/24 11:40 Ur Squamous Epith Cells 0-5 /hpf (0-5) 11/04/24 11:40 Amorphous Sediment Not Reportable 11/04/24 11:40 Urine Bacteria None seen /hpf (NONE) 11/04/24 11:40 Hyaline Casts 0-4 /lpf H 11/04/24 11:40 Salicylates < 0.3 mg/dL (3-10) L 11/04/24 11:44 Urine Opiates Screen Negative ng/mL (Negative) 11/04/24 11:40 Acetaminophen < 5.0 ug/mL (10-30) L 11/04/24 11:44 Ur Barbiturates Screen Negative ng/mL (Negative) 11/04/24 11:40 Ur Phencyclidine Scrn Negative ng/mL (Negative) 11/04/24 11:40 Ur Amphetamines Screen Negative ng/mL (Negative) 11/04/24 11:40 U Benzodiazepines Scrn Negative ng/mL (Negative) 11/04/24 11:40 Urine Cocaine Screen Negative ng/mL (Negative) 11/04/24 11:40 U Marijuana (THC) Screen Positive ng/mL (Negative) H 11/04/24 11:40 Ethyl Alcohol 200 mg/dL (0-10) H 11/04/24 15:47 Adenovirus (PCR) Not detected (NOT DETECT) 11/04/24 12:40 C. pneumoniae DNA (PCR) Not detected (NOT DETECT) 11/04/24 12:40 Coronavirus (PCR) Cancelled 11/04/24 12:40 Coronavirus 229E (PCR) Not detected (NOT DETECT) 11/04/24 12:40 Human Metapneumovir PCR Not detected (NOT DETECT) 11/04/24 12:40 Influenza A (H1) PCR Not detected (NOT DETECT) 11/04/24 12:40 Influenza A (PCR) Cancelled 11/04/24 12:40 Influ A (H1/09) PCR Not detected (NOT DETECT) 11/04/24 12:40 Influenza A (H3) PCR Not detected (NOT DETECT) 11/04/24 12:40 Influenza Type A (PCR) Not detected (NOT DETECT) 11/04/24 12:40 Influenza Type B (PCR) Cancelled 11/04/24 12:40 Influenza Type B (PCR) Not detected (NOT DETECT) 11/04/24 12:40 M. pneumoniae (PCR) Not detected (NOT DETECT) 11/04/24 12:40 Parainfluenza 1 (PCR) Not detected (NOT DETECT) 11/04/24 12:40 Parainfluenza 2 (PCR) Not detected (NOT DETECT) 11/04/24 12:40 Parainfluenza 3 (PCR) Not detected (NOT DETECT) 11/04/24 12:40 Parainfluenza 4 (PCR) Not detected (NOT DETECT) 11/04/24 12:40 RSV (PCR) Cancelled 11/04/24 12:40 RSV Type A (PCR) Not detected (NOT DETECT) 11/04/24 12:40 RSV Type B (PCR) Not detected (NOT DETECT) 11/04/24 12:40 Entero/Rhino (PCR) Not detected (NOT DETECT) 11/04/24 12:40 SARS-CoV-2 (PCR) Not detected (NOT DETECT) 11/04/24 12:40 No radiology studies performed this visit EKG Data EKG 1: I personally reviewed and interpreted this EKG as follows: EKG interpretation date: 11/04/24 EKG interpretation time: 12:43 Interpretation: Sinus rhythm, ventricular rate 86, HI 154, QTc 3 79, no acute ST elevation or changes noted Discharge Plan Discharge Patient Disposition: Xfer Psychiatric Hosp Clinical Impression: Suicidal ideation Depression Qualifiers: Depression Type: unspecified Qualified Code(s): F32.A - Depression, unspecified Condition: Stable Coding Level of Care Code ED Health Care Specialist for Juan Fair
[2024-11-04 11:57] LABS: Basophils % 0.6 %; Eosinophils % 0.6 %; Hematocrit 47.9 % (37-53); Lymphocytes # 2.4 10^3/uL (0.8-4.8); Lymphocytes % 43.6 %; Mean Corpuscular HGB Conc 33.8 g/dL (30-55); Mean Corpuscular Hemoglobin 33.1 pg (27-33); Mean Corpuscular Volume 97.8 fl (82-101); Mean Platelet Volume 8.5 fL (7.4-10.4); Monocytes # 0.6 10^3/uL (0.2-0.9); Monocytes % 10.5 %; Neutrophils # 2.42 10^3/uL (1.8-7.7); Neutrophils % 44.3 %; Nucleated Red Blood Cells % 0 %; Platelet Count 457 10^3/cmm (157-399); Red Cell Distribution Width 11.7 % (12.1-15.1); White Blood Count 5.44 10^3/uL (3.29-11.43)
[2024-11-04 12:05] LABS: Bilirubin Urine Negative (Negative); Blood Urine Negative (Negative); Glucose Urine UA Negative (Normal); Ketones Urine Negative (Negative); Leukocyte Esterase Urine Negative (Negative); Nitrate Urine Negative (Negative); Protein Urine Negative (Negative); Specific Gravity, Urine 1.004 (1.005-1.030); Urine Appearance Clear (CLEAR); Urine Color Yellow (Yellow); Urobilinogen Urine 0.2 mg/dL (Negative); pH Urine 6.5 (5-7)
[2024-11-04 12:07] LABS: Add Urine Microscopic? YES; Bacteria Urine None Seen /hpf; Hyaline Casts Urine 0-4 /lpf; RBC Urine 0-2 /hpf (0-2); Squamous Epithelial Cell Urine 0-5 /hpf (0-5); WBC Urine 0-5 /hpf (0-5)
[2024-11-04 12:12] LABS: Amphetamines Screen Urine Negative (Negative); Barbiturates Screen Urine Negative (Negative); Benzodiazepines Screen Urine Negative (Negative); Cocaine Screen Urine Negative (Negative); Opiate Screen Urine Negative (Negative); PCP Screen Urine Negative (Negative); THC Screen Urine Positive (Negative)
[2024-11-04] MEDS: lidocaine 2% viscous 15 ML, aluminum-mag hydrox-simethicon 30 ML, sucralfate oral liq 1 GM PO (12:13)
[2024-11-04 12:18] LABS: Alanine Aminotransferase 18 U/L (0-41); Albumin Level 4.4 g/dL (3.5-5.2); Alcohol Level 274 mg/dL (0-10); Alkaline Phosphatase 93 U/L (40-130); Anion Gap 18.3 (5-19); Aspartate Amino Transferase 32 U/L (0-40); Blood Urea Nitrogen 8 mg/dL (6-20); Calcium 8.7 mg/dL (8.5-10.5); Carbon Dioxide 28 mmol/L (22-29); Chloride 99 mmol/L (98-107); Creatinine Clr Calc Pharmacy 187.2578; Globulin 3.2 g/dL (1.3-4.6); Glomerular Filtration Rate 146.4 mL/min (90-130); Glucose 68 mg/dL (65-115); Osmolality Calculated 291 mOsm/kg (285-295); Potassium 3.3 mmol/L (3.5-5.1); Sodium 142 mmol/L (136-145); Total Bilirubin 0.5 mg/dL (0.15-1.2); Total Protein 7.6 g/dL (6.6-8.7)
[2024-11-04 12:21] LABS: Acetaminophen < 5.0 ug/mL (10-30); Salicylate < 0.3 mg/dL (3-10)
--- NOTE | 2024-11-04 12:46 | ECG_ITS ---
[facility] Test Date: 2024-11-04 Pat Name: Rey Bridges Department: Room: Gender: Male Pleater Hand: : 1980 Requested By: Carlos Bowman Order Number: [id number] Galo MD: Lisy Tolbert M.D. Measurements Intervals [place] Rate: 86 P: 78 WV: 154 QRS: 80 QRSD: 99 T: 74 QT: 336 QTc: 402 Interpretive Statements SINUS RHYTHM Compared to ECG 12/31/2016 00:39:50 No significant changes Electronically Signed On 11-04-2024 17:22:32 GENERAL UTILITY WORKER by Lisy Tolbert M.D. [email or web address]
[2024-11-04 14:50] LABS: Adenovirus Not Detected (NOT DETECT); Chlamydia Pneumoniae Not Detected (NOT DETECT); Coronavirus 229E,HKU1,NL63,OC4 Not Detected (NOT DETECT); Human Metapneumovirus Not Detected (NOT DETECT); Human Rhinovirus/Enterovirus Not Detected (NOT DETECT); Influenza A Not Detected (NOT DETECT); Influenza A H1 Not Detected (NOT DETECT); Influenza A H1-2009 Not Detected (NOT DETECT); Influenza A H3 Not Detected (NOT DETECT); Influenza B Not Detected (NOT DETECT); Mycoplasma Pneumoniae Not Detected (NOT DETECT); Parainfluenza Virus Type 1 Not Detected (NOT DETECT); Parainfluenza Virus Type 2 Not Detected (NOT DETECT); Parainfluenza Virus Type 3 Not Detected (NOT DETECT); Parainfluenza Virus Type 4 Not Detected (NOT DETECT); Respiratory Syncytial Virus A Not Detected (NOT DETECT); Respiratory Syncytial Virus B Not Detected (NOT DETECT); SARS-COV-2 Not Detected (NOT DETECT)
[2024-11-04 16:27] LABS: Alcohol Level 200 mg/dL (0-10)
[2024-11-04 18:31] VITALS: BP 135/93; PULSE 89; O2SAT 98
--- NOTE | 2024-11-04 18:52 | PC.NURSE ---
Care was assumed from Mary LARA at this time.
[2024-11-04 21:04] VITALS: BP 135/93; PULSE 71; O2SAT 99
--- NOTE | 2024-11-04 21:05 | PC.NURSE ---
Report was given to [facility] with [facility]; all questions and concerns were addressed at time of report.
[2024-11-04 22:00] VITALS: BP 135/93; PULSE 71; O2SAT 99
== END 2024-11-04 22:00 ==
PROVIDERS: Emergency Provider Student in an Organized Health Care Education/Training Program
DX: R45.851 Suicidal ideations (principal); F32.A Depression, unspecified; Z11.52 Encounter for screening for COVID-19; Z72.0 Tobacco use
CPT/HCPCS: 36415; 80053; 80306; 80307; 81001; 85025; 87486; 87581; 87633; 93005; 99285

== ENCOUNTER 2025-04-01 13:57 | Emergency (ER) | payer OTHER, SELFPAY ==
[2025-04-01 14:07] VITALS: BP 125/80; PULSE 97; RESP 16; TEMP 36.6; O2SAT 98; BMI 23.1
[2025-04-01 14:10] VITALS: BP 135/81; O2SAT 97
--- NOTE | 2025-04-01 14:54 | XRR_ITS ---
PROCEDURE INFORMATION: Exam: XR Right Knee Exam date and time: 04/01/2025 2:55 PM Age: 44 years old Clinical indication: Pain; Knee; Right; Additional info: Swelling/pain TECHNIQUE: Imaging protocol: Radiologic exam of the right knee. Views: 3 views. COMPARISON: CR XR ankle RT min 3V* [id number] 08/26/2024 8:57 AM FINDINGS: Bones/joints: Normal. Soft tissues: Normal. XR/XR knee RT 3V* [id number] IMPRESSION: No acute findings.
--- NOTE | 2025-04-01 14:58 | W.ED.EXTPRO ---
HPI - Extremity Problem General: Chief complaint: Extremity Problem,Nontraumatic Stated complaint: Swollen R knee Time Seen by Provider: 04/01/25 14:50 History of Present Illness: 44-year-old male presents emergency room complaining of swelling in his right knee. 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 No history of DVTs no chest pain no shortness of breath no previous surgery to the knee Associated symptoms: Deny chest pain, fever(s) or rash Related Data Home Medications ?Medication ?Instructions ?Recorded ?Confirmed aspirin-caffeine 845 mg-65 mg oral 1 ea PO Q6H PRN Pain 04/01/25 04/01/25 powder packet (BC Pain Relief) Previous Rx's ?Medication ?Instructions ?Recorded prednisone 20 mg tablet 20 mg PO TID #15 tabs 04/01/25 Allergies Allergy/AdvReac Type Severity Reaction Status Date / Time No Known Allergies Allergy Verified 11/16/23 12:07 Review of Systems Const: Denies: fever(s) or chills Card: Denies: chest pain Resp: Denies: dyspnea GI: Denies: abdominal pain : Denies: dysuria, urinary frequency or urinary urgency Musc: Reports: joint pain; Denies: neck pain or back pain Skin/Breast: Denies: rash PFSH ED PFSH: Medical History Herniated nucleus pulposus, L4-5 right Psychiatric care No pertinent family history Surgical History No pertinent past surgical history Social History Smoking and tobacco/nicotine status: current every day tobacco/nicotine user Alcohol intake: former Substance/Drug Use: never Current gender identity: Male Physical Exam Const: GENERAL APPEARANCE: cooperative ORIENTATION/CONSCIOUSNESS: Yes awake, Yes oriented to person, Yes oriented to place and Yes oriented to time HENMT: COMMON NORMALS: normocephalic, atraumatic and hearing grossly normal bilaterally HEAD & SCALP: normocephalic and atraumatic Resp: COMMON NORMALS: normal respiratory effort, No retractions, No use of accessory muscles and clear to auscultation bilaterally AUSCULTATION: clear to auscultation bilaterally Cardio: COMMON NORMALS: regular rate, regular rhythm and No murmurs present (Cardio) RATE: regular rate RHYTHM: regular rhythm Extremity: OTHER: Exam of the R leg no edema of the calf - no erythema, no abrasion no laceration. No deformity. Mild prepatellar swelling. Neuro: SENSORIUM/ORIENTATION: Yes oriented to person, Yes oriented to place and Yes oriented to time Skin: COMMON NORMALS: no rashes or lesions noted GENERAL SKIN EXAM: no rashes or lesions noted Course Vital Signs: Vital signs: Vital Signs Temperature 97.9 F 04/01/25 14:07 Pulse Rate 82 04/01/25 15:47 Respiratory Rate 16 04/01/25 14:07 Blood Pressure 126/74 04/01/25 15:47 Pulse Oximetry 99 04/01/25 15:47 Oxygen Delivery Me thod Room Air 04/01/25 14:07 MDM - Extremity (Nontraumatic) Medical Decision Making Prepatellar bursitis - avoid direct pressure, NSAIDs Medical Records I reviewed the patient's medical records. Lab Data I reviewed the patient's lab results. 04/01/25 15:31 Radiology Impressions Knee X-Ray 04/01/25 14:54 IMPRESSION: No acute findings. Laboratory Results WBC 7.94 10^3/uL (3.29-11.43) 04/01/25 15:31 RBC 4.17 10^6/uL (3.85-5.65) 04/01/25 15:31 Hgb 13.30 g/dL (11.27-16.99) 04/01/25 15:31 Hct 39.8 % (37-53) 04/01/25 15:31 MCV 95.4 fl (82-101) 04/01/25 15:31 MCH 31.9 pg (27-33) 04/01/25 15:31 MCHC 33.4 g/dL (30-55) 04/01/25 15:31 RDW 12.5 % (12.1-15.1) 04/01/25 15:31 Plt Count 289 10^3/cmm (157-399) 04/01/25 15:31 MPV 9.2 fL (7.4-10.4) 04/01/25 15: Neut % (Auto) 55.8 % 04/01/25 15: Lymph % (Auto) 34.3 % 04/01/25 15: [place] % (Auto) 7.2 % 04/01/25 15: Eos % (Auto) 2.0 % 04/01/25 15: Baso % (Auto) 0.3 % 04/01/25 15: Neut # (Auto) 4.44 10^3/uL (1.8-7.7) 04/01/25 15: Lymph # (Auto) 2.7 10^3/uL (0.8-4.8) 04/01/25 15: [place] # (Auto) 0.6 10^3/uL (0.2-0.9) 04/01/25 15: Eos # (Auto) 0.2 10^3/uL (0.0-0.8) 04/01/25 15: Baso # (Auto) 0.0 10^3/uL (0.0-0.1) 04/01/25 15: Nucleated RBC % (auto) 0 % 04/01/25 15: Nucleated RBCs # 0.0 /100WBC 04/01/25 15: C-Reactive Protein 3.0 mg/L (0.0-4.9) 04/01/25 15:31 All radiology interpretation(s) finalized by discharge Discharge Plan Discharge Patient Disposition: Home Clinical Impression: Bursitis, prepatellar, right Condition: Stable Prescriptions: New prednisone 20 mg tablet 20 mg PO TID Qty: 15 0RF Rx Instructions: 1 p.o. 3 times daily x3 days, 1 p.o. twice daily x2 days, 1 p.o. daily x2 days No Action BC Pain Relief 845-65 mg Powder In Packet 1 ea PO Q6H PRN (Reason: Pain) Discharge Orders: Discharge ED (Routine); Ordered 04/01/25 Ordered By: Saleem Sharma Discharge Diet: Usual diet Discharge Activity: Limit activity as instructed Patient Instructions: Opioid Safety, Pain Management Activity Restrictions/Additional Instructions: Thank you for choosing [facility] for your healthcare needs today. It is very important that you follow up as instructed or that you return to the Emergency Department should you have concerns or if your condition changes or worsens in any way. On exam your x-ray was normal you do have some prepatellar bursitis. Recommend steroid taper avoid bending down on that particular knee consistently or use padding to limit impact. Follow-up as needed Print Language: Greek Coding Level of Care Code ED Arch Support Technician for Juan Fair
[2025-04-01 15:36] LABS: Basophils % 0.3 %; Eosinophils # 0.2 10^3/uL (0.0-0.8); Hematocrit 39.8 % (37-53); Lymphocytes # 2.7 10^3/uL (0.8-4.8); Lymphocytes % 34.3 %; Mean Corpuscular HGB Conc 33.4 g/dL (30-55); Mean Corpuscular Hemoglobin 31.9 pg (27-33); Mean Corpuscular Volume 95.4 fl (82-101); Mean Platelet Volume 9.2 fL (7.4-10.4); Monocytes # 0.6 10^3/uL (0.2-0.9); Monocytes % 7.2 %; Neutrophils # 4.44 10^3/uL (1.8-7.7); Neutrophils % 55.8 %; Nucleated Red Blood Cells % 0 %; Platelet Count 289 10^3/cmm (157-399); Red Blood Count 4.17 10^6/uL (3.85-5.65); Red Cell Distribution Width 12.5 % (12.1-15.1); White Blood Count 7.94 10^3/uL (3.29-11.43)
[2025-04-01 15:47] VITALS: BP 126/74; PULSE 82; O2SAT 99
== END 2025-04-01 15:48 | disposition home or self-care (01) ==
PROVIDERS: Emergency Provider Family Medicine
DX: M70.41 Prepatellar bursitis, right knee (principal); Z72.0 Tobacco use
CPT/HCPCS: 36415; 73562; 85025; 86140; 99284

== ENCOUNTER 2025-04-11 02:22 | Emergency (ER) | payer OTHER, SELFPAY ==
--- NOTE | 2025-04-11 02:34 | XRR_ITS ---
PROCEDURE INFORMATION: Exam: XR Left Shoulder Exam date and time: 04/11/2025 2:39 AM Age: 44 years old Clinical indication: Pain and injury or trauma; Blunt trauma (contusions or hematomas); C/O worsening left shoulder pain after a fall yesterday. TECHNIQUE: Imaging protocol: Radiologic exam of the left shoulder. Views: 2 or more views. COMPARISON: No relevant prior studies available. FINDINGS: Bones/joints: Normal. Soft tissues: Normal. XR/XR shoulder LT min 2V* [id number] IMPRESSION: No acute findings.
[2025-04-11 02:35] VITALS: BP 126/95; PULSE 110; RESP 20; TEMP 36.6; O2SAT 94; BMI 23.7
--- NOTE | 2025-04-11 03:05 | W.ED.EXTPRO ---
HPI - Extremity Problem General: Chief complaint: Extremity Injury, Upper Stated complaint: Fell on left shoulder Time Seen by Provider: 04/11/25 02:45 History of Present Illness: 44-year-old male who fell 2 days ago on his left shoulder. He is experienced increasing left shoulder pain since that time. Pain is lateral and posterior. Worse with shoulder movement. Trouble sleeping due to pain. No numbness or tingling. No neck pain. No head injury. No fever no prior shoulder injury. Related Data Home Medications ?Medication ?Instructions ?Recorded ?Confirmed aspirin-caffeine 845 mg-65 mg oral 1 ea PO Q6H PRN Pain 04/01/25 04/01/25 powder packet ( Pain Relief) Previous Rx's ?Medication ?Instructions ?Recorded prednisone 20 mg tablet 20 mg PO TID #15 tabs 04/01/25 ketorolac 10 mg tablet 10 mg PO TID PRN pain #10 tabs 04/11/25 Allergies Allergy/AdvReac Type Severity Reaction Status Date / Time No Known Allergies Allergy Verified 11/16/23 12:07 [facility], [facility] ED PFSH: Medical History Herniated nucleus pulposus, L4-5 right Psychiatric care No pertinent family history Surgical History No pertinent past surgical history Social History Smoking and tobacco/nicotine status: current every day tobacco/nicotine user Alcohol intake: former Substance/Drug Use: never Current gender identity: Male Physical Exam Const: COMMON NORMALS: no acute distress GENERAL APPEARANCE: cooperative; not ill appearing and not frail appearing HENMT: COMMON NORMALS: normocephalic, atraumatic and Normal external nose present HEAD & SCALP: normocephalic and atraumatic FACE & SINUS: normal facial exam and face symmetric NOSE: Normal external nose present Neck/C-Spine: GENERAL: Yes trachea midline Chest: CHEST: Yes Symmetrical chest wall rise Resp: COMMON NORMALS: normal respiratory effort, No retractions, No use of accessory muscles and clear to auscultation bilaterally AUSCULTATION: clear to auscultation bilaterally Cardio: COMMON NORMALS: regular rate and regular rhythm RATE: regular rate RHYTHM: regular rhythm Extremity: COMMON NORMALS: no pedal edema NARRATIVE EXTREMITY EXAM: Examination left shoulder reveals no deformity. There is mild AC tenderness. There is tenderness over the rotator cuff footprint along the lateral shoulder near the deltoid. No anterior tenderness. No joint line tenderness. Pulses and sensation are intact distally. Neuro: GARIMA COMA SCALE: document GCS findings Garima coma scale eye opening: Spontaneous [place] coma scale verbal response: Orientated Garima coma scale motor response: Obey commands Garima coma scale total score: 15 SENSORY EXAM: Yes extremities (intact) Psych: COMMON NORMALS: speech normal SPEECH: Yes normal speech Skin: COMMON NORMALS: no rashes or lesions noted GENERAL SKIN EXAM: no rashes or lesions noted Course Vital Signs: Vital signs: Vital Signs Temperature 98 F 04/11/25 02:35 Pulse Rate 97 04/11/25 03:10 Respiratory Rate 16 04/11/25 03:10 Blood Pressure 146/93 04/11/25 03:10 Pulse Oximetry 96 04/11/25 03:10 MDM - Extremity (Nontraumatic) Medical Decision Making X-rays are negative. Sling for comfort for no more than 3 to 5 days. Outpatient follow-up. Lab Data Radiology Impressions Shoulder X-Ray 04/11/25 02:34 IMPRESSION: No acute findings. All radiology interpretation(s) finalized by discharge Discharge Plan Discharge Patient Disposition: Home Clinical Impression: Contusion of left shoulder Condition: Stable Prescriptions: New ketorolac 10 mg tablet 10 mg PO TID PRN (Reason: pain) Qty: 10 0RF No Action prednisone 20 mg tablet 20 mg PO TID Qty: 15 0RF Rx Instructions: 1 p.o. 3 times daily x3 days, 1 p.o. twice daily x2 days, 1 p.o. daily x2 days BC Pain Relief 845-65 mg Powder In Packet 1 ea PO Q6H PRN (Reason: Pain) Discharge Orders: Discharge ED (Routine); Ordered 04/11/25 Ordered By: Ulices Burton Patient Instructions: Shoulder Pain (ED), Opioid Safety, Pain Management Activity Restrictions/Additional Instructions: You may sling your shoulder, but no more than 3 to 5 days. Try to push range of motion on your own after day 3. Pain medication as directed. Ice may help with pain and swelling as well. Call your doctor for follow-up appointment Saturday. Return for new or worrisome symptoms. Print Language: B[place]udian Coding Level of Care Code ED Site Operations Manager for Juan Fair
[2025-04-11 03:10] VITALS: BP 146/93; PULSE 97; RESP 16; O2SAT 96
[2025-04-11] MEDS: ketorolac 10 mg Tablet PO (03:21)
[2025-04-11] MEDS: oxyCODONE-APAP 5-325 mg Tablet 2 TAB PO (03:21)
== END 2025-04-11 03:22 | disposition home or self-care (01) ==
PROVIDERS: Emergency Provider Emergency Medicine
DX: S40.012A Contusion of left shoulder, initial encounter (principal); Z72.0 Tobacco use; W19.XXXA Unspecified fall, initial encounter
CPT/HCPCS: 73030; 99283; J9999

== ENCOUNTER 2025-04-27 09:40 | Emergency (ER) | payer OTHER, SELFPAY ==
[2025-04-27 10:09] VITALS: BP 121/74; PULSE 95; RESP 16; TEMP 36.4; O2SAT 98
--- NOTE | 2025-04-27 10:25 | ED_ITS ---
HPI - Extremity Problem General: Chief complaint: Extremity Injury, Lower Stated complaint: L knee pain, swelling Time Seen by Provider: 04/27/25 09:41 Source: patient Mode of arrival: ambulatory Limitations: no limitations History of Present Illness: Patient is a 44-year-old male presents to ED today with a complaint of swelling to his left knee. 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 He states he woke up this morning with swelling to his anterior left knee. No known injury or trauma. Was here approximately a month ago for identical symptoms to the right knee that was thought to be bursitis. He states he did good with conservative treatment and steroids. Patient was told then he needs to start wearing knee pads but has not started doing this yet . He has not noticed any redness or warmth to the knee joint. Has not had any recent cuts, scrapes, abrasions, puncture wounds. He is ambulatory here without difficulty or assistance. 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) Related Data Home Medications ?Medication ?Instructions ?Recorded ?Confirmed aspirin-caffeine 845 mg-65 mg oral 1 ea PO Q6H PRN Alayna n 04/01/25 04/01/25 powder packet (BC Pain Relief) Previous Rx's ?Medication ?Instructions ?Recorded ketorolac 10 mg tablet 10 mg PO TID PRN pain #10 ta bs 04/11/25 prednisone 10 mg tablet 10 mg PO DAILY 5 days #14 ta bs 04/27/25 Allergies Allergy/AdvReac Type Severity Reaction Status Date / Time No Known Allergies Allergy Verified 11/16/23 12:07 Review of Systems Const: Denies: fever(s), chills, body aches, fatigue or malaise Musc: Reports: joint swelling (L anterior knee); Denies: neck pain, back pain, extremity pain, extremity swelling, joint redness, joint warmth, joint stiffness, limited range of motion, muscle cramps or muscle weakness Neuro: Denies: numbness in extremities, weakness in extremities, sensory changes or difficulty walking PFS ED PFSH: Medical History Herniated nucleus pulposus, L4-5 right Psychiatric care No pertinent family history Surgical History No pertinent past surgical history Social History Smoking and tobacco/nicotine status: current every day tobacco/nicotine user Alcohol intake: former Substance/Drug Use: never Current gender identity: Male Physical Exam Const: COMMON NORMALS: no acute distress, average body habitus, patient oriented x3, no limitations, healthy appearing, alert and well nourished Extremity: COMMON NORMALS: full ROM, capillary refill normal, no clubbing, cyanosis or edema, no calf tenderness and no pedal edema GENERAL: Yes normal exam except as noted LEFT LOWER EXTREMITY: Yes knee joint (edema/effusion overlying L anterior knee; full ROM) Left knee: Yes ROM (normal) and Yes neurovascular exam (normal) Neuro: COMMON NORMALS: patient oriented x3, moves all extremities, no focal motor deficits and no sensory deficits noted SENSORIUM/ORIENTATION: Yes alert Course Vital Signs: Vital signs: Vital Signs Temperature 97.6 F 04/27/25 10:09 Pulse Rate 88 04/27/25 10:50 Respiratory Rate 18 04/27/25 10:26 Blood Pressure 125/74 04/27/25 10:50 Pulse Oximetry 99 04/27/25 10:50 Oxygen Delivery Me thod Room Air 04/27/25 10:26 MDM - Extremity (Nontraumatic) Medical Decision Making No known injury or trauma to the left knee. I do not feel like XRs would be overly helpful at this time. Given his work, this most likely is a bursitis. Discussed conservative therapies as this worked well on the right knee when he had same condition last month. Discussed wearing kneevpads which he is agreeable to. Will YANDY wrap here. Discussed ice, elevation, will place on steroids over the next 5 days. Can follow-up with primary care in 2 weeks or so if symptoms are not improving. Return to ED precautions discussed. Medical Records I reviewed the patient's medical records. No radiology studies performed this visit Discharge Plan Discharge Patient Disposition: Home Clinical Impression: Prepatellar bursitis of left knee Condition: Stable Prescriptions: New prednisone 10 mg tablet 10 mg PO DAILY 5 Days Qty: 14 0RF Rx Instructions: Take 4 tabs on day 1-2, 3 tabs on day 3, 2 tabs on day 4, 1 tab on day 5 Discontinued prednisone 20 mg tablet 20 mg PO TID Qty: 15 0RF Rx Instructions: 1 p.o. 3 times daily x3 days, 1 p.o. twice daily x2 days, 1 p.o. daily x2 days No Action BC Pain Relief 845-65 mg Powder In Packet 1 ea PO Q6H PRN (Reason: Pain) ketorolac 10 mg tablet 10 mg PO TID PRN (Reason: pain) Qty: 10 0RF Discharge Orders: Discharge ED (Routine); Ordered 04/27/25 Ordered By: Deirdre Merrill Patient Instructions: Bursitis - Prepatellar, Knee Bursitis (ED), Patient Portal & [facility] Instructions Activity Restrictions/Additional Instructions: As we discussed, you need to wear some type of protectant knee pad especially with your line of work. You may wear YANDY wrap for compression. Ice and elevate the knee. You may take [id number] anti-inflammatories such as ibuprofen or naproxen (pick one or the other-do not use both together). Will place you on steroids over the next 5 days. Please follow-up primary care in 2 weeks or so if symptoms or not improving. Print Language: Norwegian Coding Level of Care Code ED Flexible Babysitter for Juan Fair
[2025-04-27 10:26] VITALS: RESP 18; O2SAT 99
[2025-04-27 10:50] VITALS: BP 125/74; PULSE 88; O2SAT 99
--- NOTE | 2025-04-27 16:29 | ECG_ITS ---
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 Measurements Intervals [place] Rate: 135 P: 68 ID: 140 QRS: 61 QRSD: 78 T: 66 QT: 331 QTc: 496 Interpretive Statements SINUS TACHYCARDIA NONSPECIFIC ST & T-WAVE ABNORMALITY Compared to ECG 11/04/2024 12:40:29 T-wave abnormality now present Sinus rhythm no longer present Electronically Signed On 04-29-2025 09:33:45 CDT by Epi Sibley M.D. [id number]
== END 2025-04-27 10:51 | disposition home or self-care (01) ==
PROVIDERS: Emergency Provider Physician Assistant
DX: M70.42 Prepatellar bursitis, left knee (principal); Z72.0 Tobacco use
CPT/HCPCS: 93005; 99283